=== PATIENT | male | born 1985 | race Caucasian/White ===

== ENCOUNTER 2018-05-19 13:12 | Emergency (ER) | payer OTHER ==
[~2018-05-19] VITALS: Ht 180.3 cm; Wt 95.2 kg
== END 2018-05-19 14:06 | disposition home or self-care (01) ==
LOC: ER 13:12
DX: S76.111A Strain of right quadriceps muscle, fascia and tendon, initial encounter (principal); X58.XXXA Exposure to other specified factors, initial encounter; Z88.0 Allergy status to penicillin
CPT/HCPCS: 99282